=== PATIENT | female | born 1945 | race Hispanic/Latino ===

== ENCOUNTER 2020-07-05 09:49 | Emergency (ER) | payer OTHER ==
[~2020-07-05] VITALS: Ht 149.9 cm; Wt 66.2 kg
[2020-07-05] MEDS ORDERED: AZITHROMYCIN 250 MG TAB PO STA (11:31)
[2020-07-05] MEDS ORDERED: DEXAMETHASONE 4 MG TAB PO STA (11:31)
[2020-07-05] MEDS ORDERED: AZITHROMYCIN250 MG PO (11:41)
[2020-07-05] MEDS ORDERED: VENTOLIN HFA18 GM INH (11:41)
[2020-07-05] MEDS ORDERED: PREDNISONE20 MG PO (11:41)
[2020-07-05] MEDS ORDERED: AZITHROMYCIN 250 MG TAB ONE (11:44)
[2020-07-05] MEDS ORDERED: DEXAMETHASONE SOD PHOS 10 MG/1 ML VIAL ONE (11:44)
[2020-07-05 11:46] VITALS: BP 125/62
== END 2020-07-05 11:47 | disposition home or self-care (01) ==
LOC: ER 10:00
DX: J06.9 Acute upper respiratory infection, unspecified (principal); R05 Cough; R51.9 Headache, unspecified; M79.10 Myalgia, unspecified site
CPT/HCPCS: 71045; 99283; J1100

== ENCOUNTER 2024-09-25 07:52 | Emergency (ER) | payer OTHER ==
[~2024-09-25] VITALS: Ht 149.9 cm; Wt 66.2 kg
[~2024-09-25 07:52] MED LIST: AZITHROMYCIN250 MG PO; PREDNISONE20 MG PO; VENTOLIN HFA18 GM INH
[2024-09-25 07:58] VITALS: PULSE 73; RESP 18; TEMP 97.8; O2SAT 96
[2024-09-25] MEDS: IBUPROFEN 400 MG TAB PO ONE (08:26)
== END 2024-09-25 08:30 | disposition home or self-care (01) ==
LOC: ER 08:16
DX: H92.01 Otalgia, right ear (principal); E11.9 Type 2 diabetes mellitus without complications
CPT/HCPCS: 99282